=== PATIENT | male | born 1955 | race Caucasian/White ===

== ENCOUNTER 2017-07-16 06:40 | Emergency (ER) | payer OTHER ==
[2017-07-16] MEDS ORDERED: Lidocaine 1% PF 5 ML VIAL ONE (07:50)
[2017-07-16] MEDS ORDERED: Lidocaine 1% w/Epinephrine 1:100K 20 ML VIAL ONE (07:51)
[2017-07-16] MEDS ORDERED: Adacel (T-DAP) 0.5 ML VIAL ONE (08:42)
== END 2017-07-16 08:39 | disposition home or self-care (01) ==
LOC: ERS 06:40
DX: S01.81XA Laceration without foreign body of other part of head, initial encounter (principal); I10 Essential (primary) hypertension; F43.10 Post-traumatic stress disorder, unspecified; W22.8XXA Striking against or struck by other objects, initial encounter
CPT/HCPCS: 12013; 90471; 90715; J2001

== ENCOUNTER 2018-01-22 15:45 | Outpatient (CLI) | payer OTHER ==
[2018-01-22 17:07] LABS: #Basophils 0.1 thou/uL (0.0-0.2); #Eosinphils 0.3 thou/uL (0.0-0.7); #Lymphocytes 2.8 thou/uL (1.20-3.40); #Monocytes 0.5 thou/uL (0.11-0.59); #Neutrophils 4.8 thou/uL (1.40-6.50); %Basophils 1.4 % (0.0-1.0); %Eosinophils 3.2 % (0.0-10.0); %Lymphocytes 32.8 % (21.0-51.0); %Monocytes 5.8 % (0.0-10.0); %Neutrophils 56.9 % (42.0-75.0); Mean Corpuscular HGB CONC 35.2 g/dL (32.0-36.0); Mean Corpuscular Hemoglobin 30.8 pg (27.0-31.0); Mean Corpuscular Volume 87.4 fL (78.0-98.0); Mean Platelet Volume 8.2 fL (7.4-10.4); Platelet Count 233 thou/uL (130-400); RBC Distribution Width 12.1 % (11.5-14.5); Red Blood Cell (RBC) Count 4.89 mill/uL (4.70-6.10); White Blood Cell (WBC) Count 8.4 thou/uL (4.8-10.8)
[2018-01-22 17:18] LABS: Anion Gap 15 mmol/L (10-20); BUN (Urea Nitrogen) 14 mg/dL (8.4-25.7); Calc. Creatinine Clearance 0 mL/min (70-130); Calcium 9.4 mg/dL (7.8-10.44); Carbon Dioxide 23 mmol/L (22-29); Chloride 101 mmol/L (98-107); Estimated GFR-MDRD 59; Glucose 415 mg/dL (70-105); Potassium 3.9 mmol/L (3.5-5.1); Sodium 135 mmol/L (136-145)
== END 2018-01-22 15:46 | disposition home or self-care (01) ==
LOC: LABBT 15:45
PROVIDERS: ATTEND Orthopaedic Surgery
DX: Z01.818 Encounter for other preprocedural examination (principal); M75.101 Unspecified rotator cuff tear or rupture of right shoulder, not specified as traumatic
CPT/HCPCS: 80048; 85025; 93005; 93010

== ENCOUNTER 2018-01-26 05:59 | Day surgery (SDC) | payer OTHER ==
[2018-01-22 16:16] VITALS: BMI 25.0
[2018-01-26] MEDS ORDERED: Midazolam HCl 2 mg/2 ml Vial ONE (06:25)
[2018-01-26] MEDS ORDERED: Fentanyl 100 MCG/2 ML VIAL ONE (06:25)
[2018-01-26] MEDS ORDERED: CEFAZOLIN/Water 2 GM/20 ML SYRINGE ONE (06:59)
[2018-01-26] MEDS ORDERED: Ropivacaine HCl/PF 1,100 MG in Sodium Chloride 0.9% 440 ML NERVE BLCK SCH (07:08)
[2018-01-26] MEDS ORDERED: Zolpidem Tartrate 5 MG TAB PO PRN (07:08)
[2018-01-26] MEDS ORDERED: Ondansetron HCl/PF 4 MG/2 ML Vial IVP PRN (07:08)
[2018-01-26] MEDS ORDERED: traMADol HCl 50 MG TAB PO PRN ×2 (07:08)
[2018-01-26] MEDS ORDERED: Promethazine HCl 25 MG/ML VIAL IM PRN (07:08)
[2018-01-26] MEDS ORDERED: HYDROcodone/Acetaminophen 10/325 mg Tablet PO PRN ×2 (07:08)
[2018-01-26] MEDS ORDERED: Ketorolac Tromethamine 30 MG/ML VIAL IVP PRN (07:08)
[2018-01-26] MEDS ORDERED: Fentanyl 100 MCG/2 ML VIAL IV PRN (07:09)
[2018-01-26] MEDS ORDERED: Insulin Regular 300 UNITS/3 ML VIAL ONE (07:11)
--- NOTE | 2018-01-26 10:16 | OP ---
DATE OF PROCEDURE: 01/26/2018 PREOPERATIVE DIAGNOSES: Partial subscapularis tear, rotator cuff tear, dislocation of the biceps ten don with biceps tendonitis. POSTOPERATIVE DIAGNOSES: Partial subscapularis tear, rotator cuff tear, dislocation of the biceps te ndon with biceps tendonitis. PROCEDURES: Arthroscopic biceps tenotomy, arthroscopic rotator cuff repair, arthroscopic subacromial decompression. SURGEON: Tai Oliveros M.D. ANESTHESIA: General. BLOOD LOSS: Minimal. SPECIMEN: None. DRAINS: None. COMPLICATIONS: None. IMPLANTS USED: Two corkscrew suture anchors and 2 SwiveLock suture anchors. PROCEDURE IN DETAIL: The patient was taken to the operating where general anesthesia was induced. T he patient was placed in left lateral decubitus position. Right arm was placed in traction, prepped and draped in the usual sterile fashion. Scope was placed in the glenohumeral joint. I tagged his b iceps anteriorly. This was very far dislocated and attenuated. The joint was inspected. There was no significant arthritis. The scope was placed in the subacromial bursa and subacromial decompressio n was performed. Hemostasis was obtained as needed. I freshened up the rotator cuff tear, I freshen ed up the greater tuberosity. I delivered the biceps tendon out of the rotator cuff tear with a tag suture. Rotator cuff was then repaired using the suture anchors medial row and then double reinforce d with a double row type technique. There was a very good repair of the rotator cuff, there was a v norbert snug repair, although I cannot say it is completely watertight. The biceps tendon, I attempted t o do a tenodesis, but the tendon tissue was too poor condition to hold sutures. Therefore, I just pe rformed a tenotomy. The shoulder was then drained. Nylon sutures were applied and sterile dressings applied. There were no complications.
[2018-01-26] MEDS ORDERED: Ondansetron HCl/PF 4 MG/2 ML Vial ONE (10:57)
== END 2018-01-26 12:11 | disposition home or self-care (01) ==
LOC: SDC 05:59
PROVIDERS: ATTEND Orthopaedic Surgery
PROC: 0RNJ4ZZ Release Right Shoulder Joint, Percutaneous Endoscopic Approach (ICD-10-PCS; principal; 2018-01-26)
PROC: 0LQ14ZZ Repair Right Shoulder Tendon, Percutaneous Endoscopic Approach (ICD-10-PCS; principal; 2018-01-26)
DX: M75.111 Incomplete rotator cuff tear or rupture of right shoulder, not specified as traumatic (principal); M75.21 Bicipital tendinitis, right shoulder; S46.111A Strain of muscle, fascia and tendon of long head of biceps, right arm, initial encounter; Z79.899 Other long term (current) drug therapy
CPT/HCPCS: 36416; C1713; G8984-GP-CK; G8985-GP-CK; G8986-GP-CK; J1815; J2250; J2405; J3010; J7050